=== PATIENT | male | born 1990 | race African-American/Black ===

== ENCOUNTER 2020-01-13 06:44 | Emergency (ER) | payer OTHER ==
[~2020-01-13] VITALS: Ht 175.3 cm; Wt 68.0 kg
[~2020-01-13 06:44] MED LIST: IBUPROFEN 600600 M1 PO; IBUPROFEN 800800 MG PO; ZOFRAN ODT4 MG PO; ZOFRAN ODT4 MG SUBLING
[2020-01-13 08:01] LABS: ANION GAP 8 mmol/L (7-16); BUN 7 mg/dL (7-18); CALCIUM 8.9 mg/dL (8.5-10.1); CHLORIDE 103 mmol/L (98-107); CO2 25 mmol/L (21-32); GLUCOSE 118 mg/dL (74-106); SODIUM 136 mmol/L (136-145)
[2020-01-13 08:02] LABS: POTASSIUM 4.5 mmol/L (3.5-5.1)
[2020-01-13 08:07] LABS: ALBUMIN 3.7 g/dL (3.4-5.0); SGOT 35 U/L (15-37); SGPT 26 U/L (30-65); TOTAL BILIRUBIN 0.3 mg/dL (0.2-1.0); TOTAL PROTEIN 7.3 g/dL (6.4-8.2)
[2020-01-13 08:08] LABS: DIRECT BILIRUBIN < 0.1 mg/dL (<0.1-0.2)
[2020-01-13 08:35] LABS: ABSOLUTE NEUTROPHILS 3.9 thou/uL (1.4-8.2); BASOPHILS 0.6 % (0.0-2.0); EOSINOPHILS 0.8 % (0.0-3.0); HEMATOCRIT 36.3 % (42.0-52.0); LYMPHOCYTES 19.9 % (24.0-44.0); MCH 30.8 pg (26.0-34.0); MCV 93.6 fL (80.0-100.0); MONOCYTES 7.4 % (1.0-8.0); PLATELET COUNT 190 thou/uL (150-400); POLYS 71.3 % (36.0-66.0); RBC 3.89 mil/uL (4.50-6.00); RDW 13.6 % (10.5-14.5); WBC 5.5 thou/uL (4.0-11.0)
[2020-01-13 10:21] LABS: URINE BILIRUBIN NEGATIVE (Negative); URINE BLOOD NEGATIVE (Negative); URINE CLARITY CLEAR; URINE COLOR YELLOW; URINE GLUCOSE-RANDOM* NEGATIVE (Negative); URINE KETONES TRACE (Negative); URINE LEUKOCYTES-REFLEX NEGATIVE (Negative); URINE NITRITE-REFLEX NEGATIVE (Negative); URINE PROTEIN (DIPSTICK) NEGATIVE (Negative); URINE SPECIFIC GRAVITY <= 1.005 (1.005-1.035); URINE UROBILINOGEN 0.2 E.U./dl (0.2-1.0)
[2020-01-13 10:26] LABS: AMP/METHAMP Negative (Negative); BARBITURATES Negative (Negative); BENZODIAZEPINES Negative (Negative); COCAINE Negative (Negative); METHADONE Negative (Negative); OPIATES POSITIVE (Negative); PCP Negative (Negative)
[2020-01-13] MEDS ORDERED: MOBIC15 MG PO (10:41)
[2020-01-13] MEDS ORDERED: ZOFRAN ODT4 MG PO (10:41)
[2020-01-13 10:45] VITALS: BP 124/75
== END 2020-01-13 10:51 | disposition home or self-care (01) ==
LOC: ER 06:44
PROVIDERS: Emergency Medicine
DX: R10.9 Unspecified abdominal pain (principal); R11.10 Vomiting, unspecified; J45.909 Unspecified asthma, uncomplicated; Z87.891 Personal history of nicotine dependence; Z79.899 Other long term (current) drug therapy